=== PATIENT | female | born 1990 | race Caucasian/White ===

== ENCOUNTER 2019-08-19 10:33 | Emergency (ER) | payer BC ==
--- NOTE | 2019-08-19 11:08 | ER Document Report ---
ED Medical Screen (RME) - General Chief Complaint: Near Syncope Stated Complaint: POSSIBLE SYNC 19WKS PREG Time Seen by Provider: 08/19/19 11:02 Mode of Arrival: Wheelchair Information source: Patient Notes: 29-year-old female approximately 19 weeks G1, P0 presents emergency department after she had a syncopal episode at work. She reports she works at [employer]. She did not eat breakfast this morning. She was waiting on a customer when she felt lightheaded and passed out. She reports the customer caught her before her head hit the ground, she thinks. She denies abdominal dyan n. Denies vaginal bleeding. Denies head pain. Reports she feels better after she drank some orange juice. I have greeted and performed a rapid initial assessment of this patient. A comprehensive ED assessment and evaluation of the patient, analysis of test results and completion of the medical decision making process will be conducted by additional ED providers. TRAVEL OUTSIDE OF THE [place] IN LAST 30 DAYS: No - Related Data Allergies/Adverse Reactions: adhesive Allergy (Verified 08/19/19 10:54) cefaclor [From Ceclor] Allergy (Verified 08/19/19 10:54) Sulfa (Sulfonamide Antibiotics) Allergy (Verified 08/19/19 10:54) Home Medications: buspirone 30 mg BID. famodine 40mg BID. latuda 40mg BID. womens MVI. MVI. vit D 5000 units daily. b12 1000 units daily. calcium citrate 500mg BID. melatonin 5mg QHS. lorezepam 1mg PRN. ventolin INH PRN Past Medical History - Social History Chew tobacco use (# tins/day): No Frequency of alcohol use: None Drug Abuse: None Physical Exam - Vital signs Vitals: Temp Pulse Resp BP Pulse Ox 98.0 F 81 14 112/72 100 08/19/19 10:36 08/19/19 10:36 08/19/19 10:36 08/19/19 10:36 08/19/19 10:36 Course - Vital Signs Vital signs: Temp Pulse Resp BP Pulse Ox 98.0 F 81 14 112/72 100 08/19/19 10:36 08/19/19 10:36 08/19/19 10:36 08/19/19 10:36 08/19/19 10:36
[2019-08-19 11:38] LABS: ABSOLUTE EOSINOPHILS # (AUTO) 0.1 10^3/uL (0.0-0.6); ABSOLUTE LYMPHOCYTES (AUTO) 1.2 10^3/uL (0.5-4.7); ABSOLUTE MONOCYTES (AUTO) 0.6 10^3/uL (0.1-1.4); ABSOLUTE NEUT (AUTO) 9.6 10^3/uL (1.7-8.2); BASOPHILS % (AUTO) 0.2 % (0-2); EOSINOPHILS % (AUTO) 1.1 % (0-6); HEMATOCRIT 38.1 % (36.0-47.0); HEMOGLOBIN 13.4 g/dL (12.0-15.5); LYMPHOCYTES % (AUTO) 10.4 % (13-45); MEAN CORPUSCULAR HEMOGLOBIN 33.4 pg (27.0-33.4); MEAN CORPUSCULAR HGB CONC 35.2 g/dL (32.0-36.0); MEAN CORPUSCULAR VOLUME 95 fl (80-97); MONOCYTES % (AUTO) 4.9 % (3-13); PLATELET COUNT 253 10^3/uL (150-450); RED BLOOD COUNT 4.02 10^6/uL (3.72-5.28); SEGMENTED NEUTROPHILS % (AUTO) 83.4 % (42-78); TOTAL CELLS COUNTED % (AUTO) 100 %; WHITE BLOOD COUNT 11.5 10^3/uL (4.0-10.5)
[2019-08-19 11:56] LABS: ALBUMIN 3.8 g/dL (3.5-5.0); ALKALINE PHOSPHATASE 63 U/L (38-126); ANION GAP 7 (5-19); ASPARTATE AMINO TRANSFERASE 24 U/L (14-36); BILIRUBIN,TOTAL 0.8 mg/dL (0.2-1.3); BLOOD UREA NITROGEN 12 mg/dL (7-20); CALCIUM 9.7 mg/dL (8.4-10.2); CARBON DIOXIDE 27 mmol/L (22-30); CHLORIDE 101 mmol/L (98-107); POTASSIUM 4.5 mmol/L (3.6-5.0); TOTAL PROTEIN 6.5 g/dL (6.3-8.2); URIC ACID 4.4 mg/dL (2.5-6.2)
[2019-08-19 12:00] LABS: GLUCOSE 69 mg/dL (75-110)
--- NOTE | 2019-08-19 13:40 | ER Document Report ---
HPI - HPI Time Seen by Provider: 08/19/19 11:02 Pain Level: 0 Notes: 29-year-old female approximately 19 weeks G1, P0 presents emergency department after she had a syncopal episode at work. She reports she works at [employer]. She did not eat breakfast this morning. She was waiting on a customer when she felt lightheaded and passed out. She reports the customer caught her before her head hit the ground, she thinks. She denies abdominal pain. Denies vaginal bleeding. Denies head pain. Reports she feels better after she drank some orange juice. - CONSTITUTIONAL Constitutional: DENIES: Fever, Chills - EENT EENT: DENIES: Sore Throat, Ear Pain, Eye problems - NEURO Neurology: REPORTS: Headache. DENIES: Weakness, Vision blurred, Dizzinesss / Vertigo - CARDIOVASCULAR Cardiovascular: DENIES: Chest pain - RESPIRATORY Respiratory: DENIES: Trouble Breathing, Coughing - GASTROINTESTINAL Gastrointestinal: DENIES: Abdominal Pain, Black / Bloody Stools - URINARY Urinary: DENIES: Dysuria, Urgency, Frequency - REPRODUCTIVE LMP: LESTER 01/11/2020 Reproductive: REPORTS: :. DENIES: Postmenopausal, Abnormal bleeding / discharge - MUSCULOSKELETAL Musculoskeletal: DENIES: Extremity pain Past Medical History - General Information source: Patient - Social History Smoking Status: Never Smoker Chew tobacco use (# tins/day): No Frequency of alcohol use: None Drug Abuse: None Family History: Reviewed & Not Pertinent Patient has suicidal ideation: No Patient has homicidal ideation: No GI Medical History: Reports: Hx Gastroesophageal Reflux Disease Past Surgical History: Reports: Hx Appendectomy, Hx Cholecystectomy Vertical Provider Document - CONSTITUTIONAL Notes: PHYSICAL EXAMINATION: GENERAL: Well-appearing, well-nourished and in no acute distress. HEAD: Atraumatic, normocephalic. EYES: Pupils equal round and reactive to light, extraocular movements intact, conjunctiva are normal. ENT: Nares patent, oropharynx clear without exudates. Moist mucous membranes. NECK: Normal range of motion, supple without lymphadenopathy LUNGS: Breath sounds clear to auscultation bilaterally and equal. No wheezes rales or rhonchi. HEART: Regular rate and rhythm without murmurs ABDOMEN: Soft, nontender, nondistended gravid abdomen. No guarding, no rebound. No masses appreciated. Female : deferred Musculoskeletal: Normal range of motion, no pitting or edema. No cyanosis. NEUROLOGICAL: Cranial nerves grossly intact. Normal speech, normal gait. Normal sensory, motor exams PSYCH: Normal mood, normal affect. SKIN: Warm, Dry, normal turgor, no rashes or lesions noted. - INFECTION CONTROL TRAVEL OUTSIDE OF THE [place] IN LAST 30 DAYS: No Course - Re-evaluation Re-evalutation: Otherwise healthy 29-year-old female presenting in no acute distress. heart tones within normal limits. Physical exam unremarkable. Patient reports all symptoms have resolved after drinking orange juice. Likely patient experienced hypoglycemic episode while at work. Patient will have close follow- up with her [employer], she will call them Wednesday to schedule an appointment. - Vital Signs Vital signs: Temp Pulse Resp BP Pulse Ox 97.9 F 80 20 106/67 98 08/19/19 12:47 08/19/19 12:47 08/19/19 12:47 08/19/19 12:47 08/19/19 12:47 - Laboratory Result Diagrams: 08/19/19 11:25 08/19/19 11:25 Laboratory results interpreted by me: 08/19/19 08/19/19 11:25 11:25 WBC 11.5 H Lymph % (Auto) 10.4 L Absolute Neuts (auto) 9.6 H Seg Neutrophils % 83.4 H Sodium 135.4 L Glucose 69 L Discharge - Discharge Clinical Impression: Hypoglycemia Condition: Stable Disposition: HOME, SELF-CARE Additional Instructions: I believe your episode of syncope was caused by a low blood sugar. Please make sure to eat breakfast in the morning. Follow-up with your [employer], call them Wednesday to schedule an appointment. Referrals: AISSATOU CARPENTER MD [Primary Care Provider] - Follow up as needed
[2019-08-19 14:17] VITALS: BP 98/57
--- NOTE | 2019-08-19 23:22 | EKG REPORT ---
SEVERITY:- NORMAL ECG - SINUS RHYTHM : Confirmed by: Susan Frost 19-Aug-2019 23:22:04
== END 2019-08-19 14:16 | disposition home or self-care (01) ==
LOC: ER 10:33
DX: O99.280 Endocrine, nutritional and metabolic diseases complicating pregnancy, unspecified trimester (principal); E16.2 Hypoglycemia, unspecified; O26.899 Other specified pregnancy related conditions, unspecified trimester; R55 Syncope and collapse
CPT/HCPCS: 36415; 80053; 84550; 85025; 93005; 93010; 99284

== ENCOUNTER 2019-12-19 01:51 | Outpatient (CLI) | payer BC, MEDICAID ==
[2019-12-19 02:45] LABS: APPEARANCE,URINE SLIGHTLY-CLOUDY; BILIRUBIN,URINE NEGATIVE (NEGATIVE); COLOR,URINE YELLOW; GLUCOSE, URINE NEGATIVE (NEGATIVE); KETONES,URINE NEGATIVE (NEGATIVE); LEUKOCYTE ESTERASE,URINE LARGE (NEGATIVE); NITRITE,URINE NEGATIVE (NEGATIVE); PROTEIN,URINE NEGATIVE (NEGATIVE); UROBILINOGEN,URINE NEGATIVE mg/dL (<2.0)
[2019-12-19 03:04] LABS: URINE AMPHETAMINES SCREEN NEGATIVE; URINE BARBITURATES SCREEN NEGATIVE; URINE BENZODIAZEPINES SCREEN NEGATIVE; URINE COCAINE SCREEN NEGATIVE; URINE MARIJUANA (THC) SCREEN NEGATIVE; URINE METHADONE SCREEN NEGATIVE; URINE PHENCYCLIDINE SCREEN NEGATIVE
--- NOTE | 2019-12-19 03:47 | Non Stress Test Report ---
Non Stress Test Datetime Report Generated by CPN: 12/19/2019 03:47 DEMOGRAPHIC EGA NST: 36.5 INDICATION Indication for Study (NST) Other: gestational age > 32 weeks MONITORING Monitor Explained: Monitor Explained; Test Explained; Patient Verbalized Understanding Time on Monitor: 12/19/2019 02:10 Time off Monitor: 12/19/2019 03:46 NST Duration: 96 NST INTERVENTIONS NST Interventions: PO Hydration; Reposition Patient Physician Notified NST: dr rodriguez BABY A: [id number] BABY A Movement : Present Contraction Frequency : irergular FHR Baseline : 130 Accelerations : 15X15 Decelerations : None Variability : Moderate 6-25bpm NST Review: Meets Criteria for Reactive NST NST Review and Verified By : Marylou Bellavance RN NST Results: Reactive NST REPORT Report Trigger: Send Report
== END 2019-12-19 03:52 | disposition home or self-care (01) ==
LOC: LC 01:51
PROVIDERS: ATTEND Obstetrics & Gynecology
DX: O47.03 False labor before 37 completed weeks of gestation, third trimester (principal); Z3A.36 36 weeks gestation of pregnancy; Z88.2 Allergy status to sulfonamides; Z88.6 Allergy status to analgesic agent; Z91.048 Other nonmedicinal substance allergy status
CPT/HCPCS: 59025; 80307; 81005

== ENCOUNTER 2020-01-10 05:10 | Inpatient (IN) | payer BC, MEDICAID ==
[2020-01-10 05:35] LABS: APPEARANCE,URINE SLIGHTLY-CLOUDY; BILIRUBIN,URINE NEGATIVE (NEGATIVE); COLOR,URINE YELLOW; GLUCOSE, URINE NEGATIVE (NEGATIVE); KETONES,URINE NEGATIVE (NEGATIVE); LEUKOCYTE ESTERASE,URINE LARGE (NEGATIVE); NITRITE,URINE NEGATIVE (NEGATIVE); PROTEIN,URINE NEGATIVE (NEGATIVE); URINE SPECIFIC GRAVITY 1.009; UROBILINOGEN,URINE NEGATIVE mg/dL (<2.0)
--- NOTE | 2020-01-10 05:47 | Admission Physical ---
Datetime Report Generated by CPN: 01/10/2020 05:47 CURRENT ADMISSION Chief Complaint: Suspected Ruptured Membranes Indication for Induction: Not Applicable Admit Impression : Term, Intrauterine Admit Plan: Admit to Unit; Initiate Labor Protocol ALLERGIES Medication Allergies: Yes Medication Allergies: Sulfa (Sulfonamide Antibiotics) (08/19/2019); cefaclor (08/19/2019); adhesive (08/19/2019); tramadol (12/19/2019) Latex: No Latex Allergies OBSTETRICAL HISTORY EDC: 01/11/2020 00:00 : 1 Para: 0 Gestational Diabetes: No Rh Sensitization: No Incompetent Cervix: No GINNA: No Infertility: No ART Treatment: No Uterine Anomaly: No IUGR: No Hx Previous C/S: No Macrosomia: No Hx Loss/Stillborn: No PIH: No Hx : No Placenta Previa/Abruption: No Depression/PP Depression: No PTL/PROM: No Post Hemorrhage: No Current Procedures: Ultrasound Obstetrical History Comments: G1- current SEE RECORDS Alcohol: No Marijuana : No Cocaine: No Other Illicit Drugs: No Cigarettes: Former Smoker. 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 Heart Disease: No Hosp/Surgery: Yes Autoimmune Disorder: No Anesthetic Complications: No Kidney Disease: Yes Abnormal Pap Smear: No Neuro/Epilepsy: Yes Psychiatric Disorders: Yes Other Medical Diseases: Yes Hepatitis/Liver Disease: No Significant Family History: No Varicosities/Phlebitis: No Trauma/Violence : No Thyroid Dysfunction: No Medical History Comments: UTI, trigeminal neuralgia, anxiety, bipolar (buspirone and latuda, prn ativan), tonsils and adenoids (1996), appendectomy (2001), gamma knife radiation (2016), gastric bypass (2016), cholecystectomy (2017), Marcial's esophagus INFECTIOUS HISTORY Gonorrhea: No Genital Herpes: No Chlamydia: No Tuberculosis: No Syphilis: No Hepatitis: No HIV/AIDS Exposure: No Rash or Viral Illness: No HPV: No PHYSICAL EXAM General: Normal HEENT: Normal Neurologic: Normal Thyroid: Normal Heart: Normal Lungs: Normal Breast: Deferred Back: Normal Abdomen: Normal Genitourinary Exam: Normal Extremities: Normal DTRs: Normal Pelvic Type: Adequate FETUS A EGA: 39.6 INFORMED CONSENT Signature: with User ID: [email or web address]
[2020-01-10 05:49] LABS: URINE AMPHETAMINES SCREEN NEGATIVE; URINE BARBITURATES SCREEN NEGATIVE; URINE BENZODIAZEPINES SCREEN NEGATIVE; URINE COCAINE SCREEN NEGATIVE; URINE MARIJUANA (THC) SCREEN NEGATIVE; URINE METHADONE SCREEN NEGATIVE; URINE PHENCYCLIDINE SCREEN NEGATIVE
[2020-01-10] MEDS ORDERED: RINGERS SOLUTION,LACTATED 1,000 ML IV PRN (06:42)
[2020-01-10] MEDS ORDERED: RINGERS SOLUTION,LACTATED 1,000 ML IV ONE (06:42)
[2020-01-10] MEDS ORDERED: LIDOCAINE 1% INJ-PF (10 MG/ML) 30 ML SDV ONE (07:20)
[2020-01-10] MEDS ORDERED: OXYTOCIN 10 UNIT/ML VIAL ONE (07:20)
[2020-01-10] MEDS ORDERED: OXYTOCIN/0.9 % SODIUM CHLORIDE 30 UNIT/500 ML RTUINJ ONE (07:20)
[2020-01-10] MEDS ORDERED: MISOPROSTOL 0.2 MG TABLET ONE (07:20)
[2020-01-10 07:22] LABS: ABSOLUTE EOSINOPHILS # (AUTO) 0.1 10^3/uL (0.0-0.6); ABSOLUTE LYMPHOCYTES (AUTO) 1.8 10^3/uL (0.5-4.7); ABSOLUTE MONOCYTES (AUTO) 0.8 10^3/uL (0.1-1.4); ABSOLUTE NEUT (AUTO) 11.8 10^3/uL (1.7-8.2); BASOPHILS % (AUTO) 0.3 % (0-2); EOSINOPHILS % (AUTO) 0.5 % (0-6); HEMATOCRIT 33.5 % (36.0-47.0); HEMOGLOBIN 12.1 g/dL (12.0-15.5); LYMPHOCYTES % (AUTO) 12.4 % (13-45); MEAN CORPUSCULAR HEMOGLOBIN 33.4 pg (27.0-33.4); MEAN CORPUSCULAR HGB CONC 36.2 g/dL (32.0-36.0); MEAN CORPUSCULAR VOLUME 92 fl (80-97); MONOCYTES % (AUTO) 5.8 % (3-13); PLATELET COUNT 306 10^3/uL (150-450); RED BLOOD COUNT 3.64 10^6/uL (3.72-5.28); RED CELL DISTRIBUTION WIDTH 12.9 % (11.5-14.0); TOTAL CELLS COUNTED % (AUTO) 100 %; WHITE BLOOD COUNT 14.6 10^3/uL (4.0-10.5)
[2020-01-10] MEDS ORDERED: EPHEDRINE SULFATE INJ 50 MG/1 ML AMPULE ONE (07:30)
[2020-01-10] MEDS ORDERED: BUPIVACAINE HCL 0.25 % INJ/PF (2.5 MG/1 ML) 30 ML VIAL ONE (07:31)
[2020-01-10] MEDS ORDERED: FENTANYL/BUPIVACAINE/NS/PF 300 MCG/150 ML RTUINJ EPI ONE (07:31)
[2020-01-10] MEDS ORDERED: DIBUCAINE 1% OINTMENT 28 GM TP PRN (10:43)
[2020-01-10] MEDS ORDERED: MAGNESIUM HYDROXIDE SUSP 30 ML UDCUP PO PRN (10:43)
[2020-01-10] MEDS ORDERED: MEASLES,MUMPS&RUBELLA VACC/PF 0.5 ML VIAL SUBCUT PRN (10:43)
[2020-01-10] MEDS ORDERED: PROMETHAZINE HCL INJ 25 MG/1 ML VIAL IV PRN (10:43)
[2020-01-10] MEDS ORDERED: DIPH/PERTUSS(ACELL)/TETANUS VAC/PF 0.5 ML SYR (>=10YO) IM PRN (10:43)
[2020-01-10] MEDS ORDERED: ACETAMINOPHEN 650 MG SUPP.RECT PR PRN (10:43)
[2020-01-10] MEDS ORDERED: OXYTOCIN/0.9 % SODIUM CHLORIDE 30 UNIT/500 ML RTUINJ IV PRN (10:43)
[2020-01-10] MEDS ORDERED: DIPHENHYDRAMINE HCL 25 MG CAPSULE PO PRN (10:43)
[2020-01-10] MEDS ORDERED: BENZOCAINE/MENTHOL AEROSOL SPRAY 56 ML TOP PRN (10:43)
[2020-01-10] MEDS ORDERED: NA PHOS,M-B/NA PHOS,DI-BA (ADULT) 133 ML ENEMA PR PRN (10:43)
[2020-01-10] MEDS ORDERED: PSEUDOEPHEDRINE HCL 30 MG TABLET PO PRN (10:43)
[2020-01-10] MEDS ORDERED: GLYCERIN/WITCH HAZEL LEAF 1 EACH MED..WIPE TP PRN (10:43)
[2020-01-10] MEDS ORDERED: PROMETHAZINE HCL 25 MG TABLET PO PRN (10:43)
[2020-01-10] MEDS ORDERED: PROMETHAZINE HCL 25 MG SUPP.RECT PR PRN (10:43)
--- NOTE | 2020-01-10 10:58 | Warning Signs in Babies ---
VOD Warning Signs Datetime Report Generated by [facility]: 01/10/2020 10:58 VOD#608 -Warning Signs in Babies: Needs to be viewed. (12/19/2019 02:03:Pastor Coon RN)
[2020-01-10] MEDS ORDERED: IBUPROFEN 800 MG TABLET PO SCH (11:00)
--- NOTE | 2020-01-10 11:57 | Delivery Summary ---
Del Sum A-C Datetime Report Generated by CPN: 01/10/2020 11:56 DELIVERY PERSONNEL DELIVERY PERSONNEL: [id number] Delivery Doctor:: Abiola Alvarez CNM Labor and Delivery Nurse:: Raiza Mart RNhand splitter Nurse:: shanelle Coon RN Nursery Nurse:: Bernie Olivier RN Nursery Nurse:: vince Contreras/JUDGE CLERK: Grecia Christopher CNA II MATERNAL INFORMATION Delivery Anesthesia: Epidural Medications After Delivery: Pitocin 30 Units in 500ml NS/D5W Delivery QBL: 50 Delivery QBL Comment: 50 Maternal Complications: None Provider Comments: pt quickly progressed to c/c/1 with urge to push began pushing and after much coaching went on to deliver a viable baby girl in straight OP position through loose nuchal cord. Baby with vigorous respiratory effort and cry with tactile stimulation and placed on maternal abdomen skin to skin, cord allowed to stop pulsating then clamped x2 and cut by pt's mother. Cord blood collected (3vc noted). Placenta delivered spontaneously intact, fundus firm at U, bleeding stable. Vaginal and perineal laceration revealed MLL as stated above that was hemostatic and not repaired. Mother and baby remain skin to skin and bonding at this time. LABOR SUMMARY EDC: 01/11/2020 00:00 No. Babies in Womb: 1 Attempted: No Labor Anesthesia: Epidural LABOR INFORMATION Reason for Induction: Not Applicable Onset of Labor: 01/10/2020 02:30 Complete Dilatation: 01/10/2020 09:15 Oxytocin: N/A Group B Beta Strep: negative Antibiotics # of Doses: 0 Antibiotics Time of Last Dose: 0 Name of Antibiotic Given: 0 Steroids Given: None Reason Steroids Not Administered: Not Applicable MEMBRANES Membranes Rupture Method: Spontaneous Rupture of Membranes: 01/10/2020 18:30 Length of Rupture (hr): -8.08 Amniotic Fluid Color: Moderate Meconium Amniotic Fluid Amount: None Amniotic Fluid Odor: None STAGES OF LABOR Stage 1 hr: 6 Stage 1 min: 45 Stage 2 hr: 1 Stage 2 min: 10 Stage 3 hr: 0 Stage 3 min: 6 Total Time in Labor hr: 8 Total Time in Labor min: 1 VAGINAL DELIVERY Episiotomy: None Laceration #1: Vaginal Laceration Extension #1: First Degree Laceration Repair: Not Applicable Laceration Repair Note: hemostatic, no repair Sponge Count Correct: Yes Sharps Count Correct: N/A CSECTION DELIVERY Primary Indication: N/A Secondary Indication: N/A CSection Incidence: N/A Labor: N/A Elective: N/A CSection Incision: N/A BABY A INFORMATION Delivery Date/Time: 01/10/2020 10:25 Method of Delivery: Vaginal Nurse Controlled Delivery: No Born in Route : No : N/A Forceps: N/A Vacuum Extraction: N/A Shoulder Dystocia : No PRESENTATION/POSITION BABY A Presentation: Cephalic Cephalic Presentation: Vertex Vertex Position: Left Occipital Posterior Breech Presentation: N/A PLACENTA INFORMATION BABY A Placenta Delivery Time : 01/10/2020 10:31 Placenta Method of Delivery: Spontaneous Placenta Status: Delivered SCORES BABY A Heart Rate 1 min: >100 bpm Resp Effort 1 min: Good Cry Reflex Irritability 1 min: Cough or Sneeze or Pulls Away Muscle Tone 1 min: Active Motion Color 1 min: Body [place], Extremities Blue Resuscitation Effort 1 min: Tactile Stimulation SCORE 1 MIN: 9 Heart Rate 5 min: >100 bpm Resp Effort 5 min: Good Cry Reflex Irritability 5 min: Cough or Sneeze or Pulls Away Muscle Tone 5 min: Active Motion Color 5 min: Body [place], Extremities Blue Resuscitation Effort 5 min: Tactile Stimulation SCORE 5 MIN: 9 INFANT INFORMATION BABY A Gestational Age at Delivery: 39.6 Gestational Status: Full Term- 39- 40.6 Weeks Infant Outcome : Liveborn Condition : Stable Infant Sex: Female IDENTIFICATION BABY A Verification Date/Time: 01/10/2020 10:38 ID Band Number: [id number] Mother's Name Verified: Yes RN Verifying Infant: JNiebuhr,RN Additional Verifying Personnel: EFRAIN Betancur WEIGHT/LENGTH BABY A Infant Birthweight (gm): 3046 Infant Weight (lb): 6 Infant Weight (oz): 11 Length (in): 19.00 Infant Length (cm): 48.26 CORD INFORMATION BABY A No. Cord Vessels: 3 Nuchal Cord : Around Neck x1, Tight Cord Blood Taken: Yes-For Storage (Mom's Blood type +) Infant Suction: None ASSESSMENT BABY A Skin to Skin: Yes BABY B INFORMATION : N/A SIGNATURES Assignment: Starr Valdez MD Signature: with User ID: Margo : with User ID: [email or web address]
[2020-01-10] MEDS ORDERED: IBUPROFEN 800 MG TABLET ONE (12:02)
[2020-01-10] MEDS: ACETAMINOPHEN 325 MG TABLET PO PRN ×2 (16:08→21:29)
[2020-01-10] MEDS: FERROUS SULFATE 325 MG TABLET PO SCH (17:48)
[2020-01-10] MEDS: BUSPIRONE HCL 10 MG TABLET PO SCH (17:49)
[2020-01-10] MEDS: LURASIDONE HCL 60 MG TABLET PO SCH (17:49)
[2020-01-10] MEDS: DOCUSATE SODIUM 100 MG CAPSULE PO SCH (17:52)
[2020-01-10] MEDS ORDERED: (PENDING PHARMACY ID) (Buspirone Hcl [Buspirone Hcl] 30 MG) PO SCH (18:00)
[2020-01-10] MEDS ORDERED: FAMOTIDINE PO SCH (18:00)
[2020-01-10] MEDS: FAMOTIDINE 20 MG TABLET PO SCH (21:32)
[2020-01-11] MEDS: ACETAMINOPHEN 325 MG TABLET PO PRN ×3 (02:22→17:47)
[2020-01-11 07:09] LABS: HEMATOCRIT 31.6 % (36.0-47.0); HEMOGLOBIN 11.3 g/dL (12.0-15.5); MEAN CORPUSCULAR HEMOGLOBIN 33.3 pg (27.0-33.4); MEAN CORPUSCULAR HGB CONC 35.8 g/dL (32.0-36.0); MEAN CORPUSCULAR VOLUME 93 fl (80-97); PLATELET COUNT 289 10^3/uL (150-450); RED CELL DISTRIBUTION WIDTH 13.2 % (11.5-14.0); WHITE BLOOD COUNT 13.4 10^3/uL (4.0-10.5)
[2020-01-11] MEDS: FERROUS SULFATE 325 MG TABLET PO SCH ×2 (09:11→17:47)
[2020-01-11] MEDS: DOCUSATE SODIUM 100 MG CAPSULE PO SCH ×2 (09:13→17:47)
[2020-01-11] MEDS: SENNOSIDES/DOCUSATE 8.6-50 MG 1 EACH TABLET PO SCH (09:14)
[2020-01-11] MEDS: FAMOTIDINE 20 MG TABLET PO SCH ×2 (09:14→21:34)
[2020-01-11] MEDS: PRENATAL VITAMIN W DHA CAPSULE PO SCH (09:14)
[2020-01-11] MEDS: BUSPIRONE HCL 10 MG TABLET PO SCH ×2 (09:14→17:47)
[2020-01-11] MEDS: CALCIUM CARBONATE 500 MG TAB.CHEW PO SCH (09:15)
[2020-01-11] MEDS ORDERED: CALCIUM CARBONATE PO SCH (10:00)
[2020-01-11] MEDS ORDERED: LURASIDONE HCL 60 MG TABLET PO SCH (10:00)
[2020-01-11] MEDS ORDERED: FAMOTIDINE 20 MG TABLET PO ONE (11:00)
--- NOTE | 2020-01-11 14:35 | PDOC PROGRESS REPORT ---
Subjective-OB Progress Note for:: 01/11/20 Subjective: reports bleeding slowing,pain controlled with current meds, denies needs Physical Exam (OB) Vital Signs: Temp Pulse Resp BP Pulse Ox 97.7 F 89 16 111/74 99 01/11/20 08:00 01/11/20 08:00 01/11/20 08:00 01/11/20 08:00 01/11/20 08:00 Intake & Output 01/10/20 01/11/20 01/12/20 06:59 06:59 06:59 Intake Total 450 500 Balance 450 500 Weight 96 kg - Abdomen Description: Soft Hernia Present: No Fundal Description: Firm, Midline Fundal Height: u/u - u/2 - Abdominal Distension: No distension Tenderness: Nontender - Extremities Lower extremities: Francisco's sign - neg Calf: Normal, Nontender Objective-Diagnostic Laboratory: 01/11/20 06:30 01/11/20 06:30 WBC 13.4 H RBC 3.40 L Hgb 11.3 L Hct 31.6 L MCV 93 MCH 33.3 MCHC 35.8 RDW 13.2 Plt Count 289 Assessment and Plan(PN) - Time Spent with Patient Time with patient: Less than 15 minutes Medications reviewed and adjusted accordingly: Yes - Disposition Anticipated Discharge: Home Within: within 24 hours
[2020-01-11] MEDS: LURASIDONE HCL 60 MG TABLET PO SCH (17:48)
[2020-01-12] MEDS: ACETAMINOPHEN 325 MG TABLET PO PRN ×3 (01:57→13:54)
[2020-01-12] MEDS: BUSPIRONE HCL 10 MG TABLET PO SCH (09:43)
[2020-01-12] MEDS: FAMOTIDINE 20 MG TABLET PO SCH (09:43)
[2020-01-12] MEDS: PRENATAL VITAMIN W DHA CAPSULE PO SCH (09:43)
[2020-01-12] MEDS: CALCIUM CARBONATE 500 MG TAB.CHEW PO SCH (09:44)
[2020-01-12] MEDS: SENNOSIDES/DOCUSATE 8.6-50 MG 1 EACH TABLET PO SCH (09:44)
[2020-01-12] MEDS: FERROUS SULFATE 325 MG TABLET PO SCH (09:44)
[2020-01-12] MEDS: DOCUSATE SODIUM 100 MG CAPSULE PO SCH (09:44)
--- NOTE | 2020-01-12 10:21 | PDOC DISCHARGE SUMMARY ---
Impression - Admit/DC Date/PCP Admission Date/Primary Care Provider: 01/10/20 05:39 JAKE GREEN MD Discharge Date: 01/12/20 - PP Day #2,doing well, no complaints, UOB, voiding, A+, rubella Immune, plans to take plain Tylenol prn pain - Additional Information Resuscitation Status: Full Code Discharge Diet: As Tolerated Referrals: JAKE GREEN MD [Primary Care Provider] - Home Medications: Buspirone HCl 30 mg PO BID 12/19/19 Famotidine 1 tab PO BID 12/19/19 Lurasidone HCl [Latuda 60 mg Tablet] 60 mg PO QPM 12/19/19 Melatonin [Melatonin 5 mg Tablet] 1 tab PO HSP PRN 12/19/19 Prenat 115/Iron Fum/Folic/Dss [ 19 Tablet] 1 tab PO DAILY 12/19/19 HPI Reason(s) for Admission: Onset of Labor Procedures: Ultrasound Intrapartum Procedure(s): Spontaneous Vaginal Delivery Results Laboratory Results: WBC 13.4 10^3/uL (4.0-10.5) H 01/11/20 06:30 RBC 3.40 10^6/uL (3.72-5.28) L 01/11/20 06:30 Hgb 11.3 g/dL (12.0-15.5) L 01/11/20 06:30 Hct 31.6 % (36.0-47.0) L 01/11/20 06:30 MCV 93 fl (80-97) 01/11/20 06:30 MCH 33.3 pg (27.0-33.4) 01/11/20 06:30 MCHC 35.8 g/dL (32.0-36.0) 01/11/20 06:30 RDW 13.2 % (11.5-14.0) 01/11/20 06:30 Plt Count 289 10^3/uL (150-450) 01/11/20 06:30 Lymph % (Auto) 12.4 % (13-45) L 01/10/20 06:58 [place] % (Auto) 5.8 % (3-13) 01/10/20 06:58 Eos % (Auto) 0.5 % (0-6) 01/10/20 06:58 Baso % (Auto) 0.3 % (0-2) 01/10/20 06:58 Absolute Neuts (auto) 11.8 10^3/uL (1.7-8.2) H 01/10/20 06:58 Absolute Lymphs (auto) 1.8 10^3/uL (0.5-4.7) 01/10/20 06:58 Absolute Monos (auto) 0.8 10^3/uL (0.1-1.4) 01/10/20 06:58 Absolute Eos (auto) 0.1 10^3/uL (0.0-0.6) 01/10/20 06:58 Absolute Basos (auto) 0.0 10^3/uL (0.0-0.2) 01/10/20 06:58 Seg Neutrophils % 81.0 % (42-78) H 01/10/20 06:58 Urine Color YELLOW 01/10/20 05:21 Urine Appearance SLIGHTLY-CLOUDY 01/10/20 05:21 Urine pH 6.0 (5.0-9.0) 01/10/20 05:21 Ur Specific [place] 1.009 01/10/20 05:21 Urine Protein NEGATIVE mg/dL (NEGATIVE) 01/10/20 05:21 Urine Glucose (UA) NEGATIVE mg/dL (NEGATIVE) 01/10/20 05:21 Urine Ketones NEGATIVE mg/dL (NEGATIVE) 01/10/20 05:21 Urine Blood SMALL (NEGATIVE) H 01/10/20 05:21 Urine Nitrite NEGATIVE (NEGATIVE) 01/10/20 05:21 Urine Bilirubin NEGATIVE (NEGATIVE) 01/10/20 05:21 Urine Urobilinogen NEGATIVE mg/dL (<2.0) 01/10/20 05:21 Ur Leukocyte Esterase LARGE (NEGATIVE) H 01/10/20 05:21 Urine Ascorbic Acid NEGATIVE (NEGATIVE) 01/10/20 05:21 Membranes Rupture POSITIVE (NEGATIVE) H 01/10/20 05:21 Urine Opiates Screen NEGATIVE 01/10/20 05:21 Urine Methadone Screen NEGATIVE 01/10/20 05:21 Ur Barbiturates Screen NEGATIVE 01/10/20 05:21 Ur Phencyclidine Scrn NEGATIVE 01/10/20 05:21 Ur Amphetamines Screen NEGATIVE 01/10/20 05:21 U Benzodiazepines Scrn NEGATIVE 06/24/20 05:21 Urine Cocaine Screen NEGATIVE 01/10/20 05:21 U Marijuana (THC) Screen NEGATIVE 01/10/20 05:21 RPR NONREACTIVE (NONREACTIVE) 01/10/20 06:58 Blood Type A POSITIVE 01/10/20 06:58 Antibody Screen NEGATIVE 01/10/20 06:58 Plan Plan of Treatment: d/c home, f/up at [facility] in 4 wks Time Spent: Less than 30 Minutes
[2020-01-12 10:59] VITALS: BP 111/74
== END 2020-01-12 14:18 | disposition home or self-care (01) | DRG 807 ==
LOC: LC 05:10 → LR 05:39 → 2S 12:42
PROVIDERS: ADMIT Obstetrics & Gynecology Gynecology; ATTEND Obstetrics & Gynecology Gynecology
PROC: 10E0XZZ Delivery of Products of Conception, External Approach (ICD-10-PCS; principal; 2020-01-10)
DX: O69.81X0 Labor and delivery complicated by cord around neck, without compression, not applicable or unspecified (principal); O99.344 Other mental disorders complicating childbirth; F31.9 Bipolar disorder, unspecified; O70.0 First degree perineal laceration during delivery; Z37.0 Single live birth; O77.0 Labor and delivery complicated by meconium in amniotic fluid; F41.9 Anxiety disorder, unspecified; Z88.2 Allergy status to sulfonamides; Z87.891 Personal history of nicotine dependence; Z98.84 Bariatric surgery status; Z3A.39 39 weeks gestation of pregnancy
CPT/HCPCS: 1967; 36415; 80307; 81005; 84112; 85025; 85027; 86592; 86850; 86900; 86901; 88307; 94760; J2590; J3010; J3490